=== PATIENT | male | born 1975 | race Caucasian/White ===

== ENCOUNTER 2020-10-17 08:19 | Outpatient (CLI) | payer OTHER ==
[2020-10-17 10:06] LABS: Anion Gap 11 mmol/L (10-20); BUN (Urea Nitrogen) 13 mg/dL (8.9-20.6); Calc. Creatinine Clearance 0 mL/min (70-130); Carbon Dioxide 29 mmol/L (22-29); Chloride 103 mmol/L (98-107); Glucose 78 mg/dL (70-105); Sodium 139 mmol/L (136-145)
[2020-10-17 17:45] LABS: SARS-CoV-2 PCR by NAA Not Detected (NotDetected)
== END 2020-10-17 08:20 | disposition home or self-care (01) ==
LOC: LABBT 08:19
PROVIDERS: ATTEND Surgery
DX: Z01.818 Encounter for other preprocedural examination (principal); K40.90 Unilateral inguinal hernia, without obstruction or gangrene, not specified as recurrent; Z20.822 Contact with and (suspected) exposure to COVID-19
CPT/HCPCS: 80048; 87635; 93005; 93010; U0003; U0005

== ENCOUNTER 2020-10-21 10:20 | Day surgery (SDC) | payer OTHER ==
[2020-10-20 10:46] VITALS: BMI 24.4
[~2020-10-21 10:20] MED LIST: Glycopyrrolate 0.2 MG/ML 5 ML SYRINGE ONE; Lidocaine 1% PF 5 ML VIAL ONE; Metoclopramide HCl 10 MG/2 ML VIAL ONE; Ondansetron PF 4 MG/2 ML Vial ONE; PROPOFOL 200 MG/20 ML VIAL ONE; Rocuronium Bromide 10 MG/ML (10ML VIAL) ONE; ePHEDrine 50 MG/ML VIAL ONE
[2020-10-21] MEDS ORDERED: Midazolam HCl 2 mg/2 ml Vial ONE (10:55)
[2020-10-21] MEDS ORDERED: Fentanyl 100 MCG/2 ML VIAL ONE ×2 (10:55→14:02)
[2020-10-21] MEDS ORDERED: XYLOCAINE 2%-EPI 1:100,000 20 ML VIAL ONE (11:43)
[2020-10-21] MEDS ORDERED: Bupivacaine 0.25% HCL 30 ML VIAL ONE (11:43)
[2020-10-21] MEDS ORDERED: HYDROmorphone 0.5 MG/0.5 ML SYRINGE ONE (13:28)
[2020-10-21] MEDS ORDERED: HYDROcodone/Acetaminophen 5/325 mg Tablet ONE (15:14)
== END 2020-10-21 16:15 | disposition home or self-care (01) ==
LOC: SDC 10:20
PROVIDERS: ATTEND Surgery
PROC: 0YU64JZ Supplement Left Inguinal Region with Synthetic Substitute, Percutaneous Endoscopic Approach (ICD-10-PCS; principal; 2020-10-21)
DX: K40.90 Unilateral inguinal hernia, without obstruction or gangrene, not specified as recurrent (principal); I10 Essential (primary) hypertension; E78.5 Hyperlipidemia, unspecified; Z79.899 Other long term (current) drug therapy
CPT/HCPCS: C1781; J0690; J1170; J2250; J2405; J2704; J2765; J3010; J3490; S0020

== ENCOUNTER 2021-08-16 09:40 | Outpatient (CLI) | payer OTHER | END 2021-08-16 09:41 | disposition home or self-care (01) | LOC: CTENTCT 09:40 | PROVIDERS: ATTEND Otolaryngology Plastic Surgery within the Head & Neck | DX: J32.9 Chronic sinusitis, unspecified (principal) | CPT/HCPCS: 70486 ==

== ENCOUNTER 2021-10-18 07:39 | Day surgery (SDC) | payer OTHER, SELFPAY ==
[2021-10-12 12:36] VITALS: BMI 24.4
[2021-10-18] MEDS ORDERED: AFRIN NASAL MIST 15 ML BOT ONE ×2 (08:11→09:21)
[2021-10-18] MEDS ORDERED: Midazolam HCl 2 mg/2 ml Vial ONE (08:34)
[2021-10-18] MEDS ORDERED: Bacitracin Zinc Ointment 30 gm TUBE ONE (09:21)
[2021-10-18] MEDS ORDERED: methylPREDNISolone Acetate 40 mg/ml Vial ONE (09:21)
[2021-10-18] MEDS ORDERED: Xylocaine 1% w/ Epi 1:100K 10 ML VIAL ONE (09:21)
[2021-10-18] MEDS ORDERED: Dexmedetomidine 200 MCG/2 ML VIAL ONE (09:26)
[2021-10-18] MEDS ORDERED: Fentanyl 250 MCG/5 ML VIAL ONE (09:26)
[2021-10-18] MEDS ORDERED: Rocuronium Bromide 10 MG/ML (10ML VIAL) ONE (09:46)
[2021-10-18] MEDS ORDERED: Lidocaine 1% PF 5 ML VIAL ONE (09:46)
[2021-10-18] MEDS ORDERED: PROPOFOL 200 MG/20 ML VIAL ONE (09:46)
[2021-10-18] MEDS ORDERED: Dexamethasone 20 MG/5 ML VIAL ONE (09:46)
[2021-10-18] MEDS ORDERED: Ondansetron PF 4 MG/2 ML Vial ONE (09:46)
[2021-10-18] MEDS ORDERED: ePHEDrine 50 MG/ML VIAL ONE (09:46)
[2021-10-18] MEDS ORDERED: Glycopyrrolate 0.2 MG/ML 5 ML SYRINGE ONE (09:46)
== END 2021-10-18 12:30 | disposition home or self-care (01) ==
LOC: SDC 07:39
PROVIDERS: ATTEND Otolaryngology Plastic Surgery within the Head & Neck
PROC: 09TV8ZZ Resection of Left Ethmoid Sinus, Via Natural or Artificial Opening Endoscopic (ICD-10-PCS; principal; 2021-10-18)
PROC: 099T8ZZ Drainage of Left Frontal Sinus, Via Natural or Artificial Opening Endoscopic (ICD-10-PCS; principal; 2021-10-18)
PROC: 099R8ZZ Drainage of Left Maxillary Sinus, Via Natural or Artificial Opening Endoscopic (ICD-10-PCS; principal; 2021-10-18)
PROC: 099Q8ZZ Drainage of Right Maxillary Sinus, Via Natural or Artificial Opening Endoscopic (ICD-10-PCS; principal; 2021-10-18)
PROC: 09SM0ZZ Reposition Nasal Septum, Open Approach (ICD-10-PCS; principal; 2021-10-18)
PROC: 099S8ZZ Drainage of Right Frontal Sinus, Via Natural or Artificial Opening Endoscopic (ICD-10-PCS; principal; 2021-10-18)
PROC: 09TL0ZZ Resection of Nasal Turbinate, Open Approach (ICD-10-PCS; principal; 2021-10-18)
PROC: 09TU8ZZ Resection of Right Ethmoid Sinus, Via Natural or Artificial Opening Endoscopic (ICD-10-PCS; principal; 2021-10-18)
DX: J32.9 Chronic sinusitis, unspecified (principal); J34.2 Deviated nasal septum; J34.3 Hypertrophy of nasal turbinates; E78.2 Mixed hyperlipidemia; E78.00 Pure hypercholesterolemia, unspecified; I10 Essential (primary) hypertension; Z79.899 Other long term (current) drug therapy
CPT/HCPCS: 93005; 93010; J1100; J2250; J2405; J2704; J2920; J3010; J3490